=== PATIENT | female | born 1995 | race Caucasian/White ===

== ENCOUNTER → 2017-10-31 | Outpatient (REF) | payer OTHER ==
[2017-10-31 19:56] LABS: BASO % 0.1 % (0.0-1.0); EOS # 0.1 10^3/uL (0.0-0.50); EOS % 0.9 % (0.0-3.0); HEMATOCRIT 35.7 % (36.0-47.0); HEMOGLOBIN 11.3 g/dl (12.0-15.5); IMMATURE GRANULOCYTE % 0.3 % (0-3.0); LYMPH % 28.3 % (24.0-44.0); MEAN CORPUSCULAR HEMOGLOBIN 26.2 pg (27.0-33.0); MEAN CORPUSCULAR HGB CONC 31.7 g/dl (32.0-36.5); MEAN CORPUSCULAR VOLUME 82.8 fl (80.0-96.0); MONO # 0.3 10^3/uL (0.0-0.8); MONO % 4.8 % (0.0-5.0); NEUTROPHILS # 4.5 10^3/uL (1.8-7.7); NEUTROPHILS % 65.6 % (36.0-66.0); PLATELET COUNT, AUTOMATED 252 10^3/uL (150-450); RED BLOOD COUNT 4.31 10^6/uL (4.00-5.40); RED CELL DISTRIBUTION WIDTH 18.6 % (11.5-14.5); WHITE BLOOD COUNT 6.9 10^3/uL (4.0-10.0)
[2017-10-31 22:49] LABS: CHLAMYDIA DNA AMPLIFICATION NEGATIVE (NEGATIVE); GC DNA AMPLIFICATION NEGATIVE (NEGATIVE)
[2017-11-03 10:55] LABS: RUBELLA IgG QUALITATIVE IMMUNE (IMMUNE)
[2017-11-03 11:02] LABS: HBsAg Prenatal NEGATIVE (NEGATIVE)
[2017-11-03 11:25] LABS: HEPATITIS C VIRUS ABY INDEX 0.1 INDEX (<0.8)
[2017-11-03 11:27] LABS: HIV 1&2 SCREEN CENTAUR NEGATIVE (NEGATIVE)
== END ==
LOC: M LAB REF 18:47
DX: Z34.81 Encounter for supervision of other normal pregnancy, first trimester (principal); Z36.89 Encounter for other specified antenatal screening; Z3A.08 8 weeks gestation of pregnancy
CPT/HCPCS: 86762

== ENCOUNTER → 2018-01-13 | Outpatient (CLI) | payer OTHER | LOC: M SMT 14:32 | DX: Z36.89 Encounter for other specified antenatal screening (principal); Z3A.19 19 weeks gestation of pregnancy | CPT/HCPCS: 76811 ==

== ENCOUNTER → 2018-02-12 | Outpatient (CLI) | payer OTHER | LOC: M SMT 08:12 | DX: Z36.89 Encounter for other specified antenatal screening (principal); Z3A.23 23 weeks gestation of pregnancy | CPT/HCPCS: 76816 ==

== ENCOUNTER → 2018-03-05 | Outpatient (CLI) | payer OTHER ==
[2018-03-05 17:25] LABS: BASO % 0.2 % (0.0-1.0); EOS % 0.5 % (0.0-3.0); HEMOGLOBIN 12.5 g/dl (12.0-15.5); LYMPH # 1.6 10^3/uL (1.5-6.5); LYMPH % 17.9 % (24.0-44.0); MEAN CORPUSCULAR HEMOGLOBIN 30.8 pg (27.0-33.0); MEAN CORPUSCULAR HGB CONC 33.8 g/dl (32.0-36.5); MEAN CORPUSCULAR VOLUME 91.1 fl (80.0-96.0); MONO # 0.4 10^3/uL (0.0-0.8); NEUTROPHILS # 6.7 10^3/uL (1.8-7.7); NEUTROPHILS % 75.8 % (36.0-66.0); PLATELET COUNT, AUTOMATED 239 10^3/uL (150-450); RED BLOOD COUNT 4.06 10^6/uL (4.00-5.40); WHITE BLOOD COUNT 8.8 10^3/uL (4.0-10.0)
== END ==
LOC: M SMT 14:22
PROVIDERS: ATTEND Advanced Practice Midwife
DX: Z34.82 Encounter for supervision of other normal pregnancy, second trimester (principal)

== ENCOUNTER → 2018-05-08 | Outpatient (REF) | payer OTHER, MEDICAID | LOC: M LAB REF 17:07 | PROVIDERS: ATTEND Advanced Practice Midwife | DX: Z34.83 Encounter for supervision of other normal pregnancy, third trimester (principal); Z3A.00 Weeks of gestation of pregnancy not specified ==

== ENCOUNTER → 2018-05-20 | Outpatient (CLI) | payer OTHER, MEDICAID ==
[2018-05-20 19:06] LABS: HEMOGLOBIN 12.1 g/dl (12.0-15.5); MEAN CORPUSCULAR HEMOGLOBIN 29.4 pg (27.0-33.0); MEAN CORPUSCULAR HGB CONC 32.7 g/dl (32.0-36.5); PLATELET COUNT, AUTOMATED 262 10^3/uL (150-450); RED BLOOD COUNT 4.11 10^6/uL (4.00-5.40); TOTAL PROTEIN,RANDOM URINE 12.5 MG/DL (0.0-12.0); WHITE BLOOD COUNT 9.9 10^3/uL (4.0-10.0)
[2018-05-20 19:14] LABS: ALT/SGPT 15 U/L (12-78); BILIRUBIN,TOTAL 0.2 MG/DL (0.2-1.0); CREATININE FOR GFR 0.64 MG/DL (0.55-1.30); GLOMERULAR FILTRATION RATE > 60.0 (>60); LDH LACTATE DEHYDROGENASE 165 U/L (84-246); URIC ACID 3.9 MG/DL (2.6-6.0)
== END ==
LOC: M SMT 15:13
PROVIDERS: ATTEND Advanced Practice Midwife
DX: O99.89 Other specified diseases and conditions complicating pregnancy, childbirth and the puerperium (principal); R03.0 Elevated blood-pressure reading, without diagnosis of hypertension

== ENCOUNTER → 2018-05-27 | Outpatient (CLI) | payer OTHER, MEDICAID ==
--- NOTE | 2018-05-27 18:05 | REP ---
Clinical: Growth evaluation. Comparison: 02/12/2018 . Findings: Examination demonstrates a single live intrauterine in cephalic presentation. motion is identified by technologist. Placenta is noted anterior and grade II without evidence for placenta previa or abruption. Amniotic fluid volume is normal. Cervix appears closed. Nuchal cord cannot be excluded. Gestational age by first US 38 weeks 2 days with PABLO 06/08/2018 . Gestational age by current measurements 36 weeks 3 day with PABLO 06/21/2018 . FHR equals 136 beats per minute. BPD 9.3 cm 837 weeks 5 days HC 32.6 cm 36 weeks 6 days AC 32.0 cm 35 weeks 6 days FL 7.2 cm 36 weeks 4 days HC/AC ratio 1.02 Estimated weight 2924 grams ( 29th percentile based on age by first ultrasound ). Amniotic fluid index: 8.4 cm (7.3 - 23.5) Umbilical cord SD ratio: 2.63 (1.60 - 2.60) Impression: 1. Single live intrauterine in cephalic presentation demonstrating relatively appropriate interval growth. 2. Nuchal cord cannot be excluded. Electronically Signed by Kana Dumont MD 05/27/2018 05:57 P
== END ==
LOC: M SMT 12:56
PROVIDERS: ATTEND Advanced Practice Midwife
DX: O26.843 Uterine size-date discrepancy, third trimester (principal); Z3A.36 36 weeks gestation of pregnancy

== ENCOUNTER 2018-06-13 12:50 | Inpatient (IN) | payer OTHER, MEDICAID ==
[2018-06-13] VITALS (23 sets, daily range): BP systolic 101–130; BP diastolic 51–92
[~2018-06-13] VITALS: Ht 165.1 cm; Wt 77.8 kg
[2018-06-13] MEDS ORDERED: PRENTAB9 PO (12:58)
[2018-06-13 14:26] LABS: HEMATOCRIT 34.3 % (36.0-47.0); HEMOGLOBIN 11.3 g/dl (12.0-15.5); MEAN CORPUSCULAR HEMOGLOBIN 28.8 pg (27.0-33.0); MEAN CORPUSCULAR HGB CONC 32.9 g/dl (32.0-36.5); MEAN CORPUSCULAR VOLUME 87.5 fl (80.0-96.0); PLATELET COUNT, AUTOMATED 225 10^3/uL (150-450); RED BLOOD COUNT 3.92 10^6/uL (4.00-5.40); WHITE BLOOD COUNT 13.9 10^3/uL (4.0-10.0)
[2018-06-13] MEDS ORDERED: FENTANYL 2MCG/ML ROPIVACAINE 0.2% IN 0.9% NACL 100ML IVBAG As Ordered ONE (16:38)
[2018-06-13] MEDS ORDERED: EPIDURAL COMMENT XX SCH (19:00)
[2018-06-13] MEDS ORDERED: FENTANYL/ROPIVACAINE/NACL BAG 100 ML EPIDURAL SCH (19:00)
[2018-06-13] MEDS ORDERED: LACTATED RINGER'S 1000 ML IV PRN (19:00)
[2018-06-13] MEDS ORDERED: EPIDURAL/PCA KEYS XX PRN (19:00)
[2018-06-13] MEDS ORDERED: REFRIGERATOR IV KEYS XX PRN (19:00)
[2018-06-13] MEDS ORDERED: ONDANSETRON 4MG/2ML VIAL (J2405) IV PRN (19:00)
[2018-06-13] MEDS ORDERED: NALOXONE INJ 0.4 MG/1 ML VIAL (J2310) IV PRN (19:00)
[2018-06-13] MEDS ORDERED: ePHEDrine SULFATE 25 MG/5 ML(5MG/ML) SYRINGE IV PRN (19:00)
[2018-06-13] MEDS ORDERED: diphenhydrAMINE INJ 50MG/ML VIAL (J1200) IV PRN (19:00)
[2018-06-13] MEDS ORDERED: OXYTOCIN 30 UNITS IN 0.9% NaCl 500ML IV BAG (J2590) As Ordered ONE (20:57)
[2018-06-13] MEDS ORDERED: OXYTOCIN DRIP 30 UNITS in APPROPRIATE DILUENT 1 EA IV SCH (22:30)
[2018-06-14] VITALS (14 sets, daily range): BP systolic 117–131; BP diastolic 56–74
[2018-06-14 02:22] LABS: CORD GAS ABE A -9.8; CORD GAS HCO3 A 19.7 MEQ/L; CORD GAS O2 SAT A 24.7 %; CORD GAS PCO2 A 58.4 mmHg; CORD GAS PH A 7.145 UNITS; CORD GAS SBC A 15.3 MEQ/L; CORD GAS TCO2 A 21.5 MEQ/L
[2018-06-14 02:24] LABS: CORD GAS ABE V -7.4; CORD GAS HCO3 V 18.9 MEQ/L; CORD GAS PH V 7.281 UNITS; CORD GAS PO2 V 28.3 mmHg; CORD GAS SBC V 17.7 MEQ/L; CORD GAS TCO2 V 20.1 MEQ/L
[2018-06-14] MEDS ORDERED: OXYTOCIN DRIP 30 UNITS in APPROPRIATE DILUENT 1 EA IV SCH (02:27)
[2018-06-14] MEDS ORDERED: IBUPROFEN 800 MG TAB PO PRN (02:30)
[2018-06-14] MEDS ORDERED: ACETAMINOPHEN 500 MG TAB PO PRN (02:30)
[2018-06-14] MEDS ORDERED: DOCUSATE SODIUM 100 MG CAP PO PRN (02:30)
[2018-06-14] MEDS ORDERED: MOM 30ML SUSPENSION UDC PO PRN (02:30)
[2018-06-14] MEDS ORDERED: METHYLERGONOVINE MALEATE 0.2 MG TAB PO PRN (02:30)
[2018-06-14] MEDS ORDERED: MEASLES,MUMPS,RUBELLA VACCINE INJ (MMR-II) (90707) SC SCH (02:30)
[2018-06-14] MEDS ORDERED: DIBUCAINE 1% OINTMENT 30GM TOP PRN (02:30)
[2018-06-14] MEDS ORDERED: ANUSOL HC CREAM 30GM TOP PRN (02:30)
[2018-06-14] MEDS ORDERED: RHOGAM 300 MCG (1500 IU) INJ (J2790) IM SCH (02:30)
[2018-06-14] MEDS ORDERED: OXYTOCIN 30 UNITS IN 0.9% NaCl 500ML IV BAG (J2590) As Ordered ONE (02:38)
--- NOTE | 2018-06-14 08:05 | HPE ---
DATE OF ADMISSION: 06/13/2018 REASON FOR ADMISSION: Labor. HISTORY OF PRESENT ILLNESS: Miss Bains is a 22-year-old 1 who presents at 40 weeks 6 days estimated gestational age by last menstrual period confirmed by a first trimester ultrasound who presents with complaints of contractions. Her course has been unremarkable. She initiated care in her first trimester and has been appropriate throughout. PAST MEDICAL HISTORY: None. PAST SURGICAL HISTORY: None. PAST OBSTETRICAL HISTORY: She is 1. MEDICATIONS: Includes vitamins and Zofran. ALLERGIES: No known drug allergies. SOCIAL HISTORY: She denies any alcohol, tobacco or drug use during her . PHYSICAL EXAMINATION: Her vital signs are stable. She is afebrile. General appearance is well appearing, no acute distress. She has category 1 rate tracing with contractions on tocometer. Her lungs are clear to auscultation bilaterally. Cardiovascular: Heart regular rate and rhythm. Abdomen is gravid, nontender. Estimated weight 3500 grams. Cervical exam: She was 4 cm dilated, 75% effaced, -2 station. LABS: Her blood type was O+. Antibody screen is negative. Rubella is immune. RPR is nonreactive. Hepatitis surface antigen is negative. HIV is negative. Hepatitis surface antigen negative. Hepatitis C is nonreactive. Chlamydia and gonorrhea screens were negative. She had a normal 1 hour Glucola. She is Group B Streptococcus (GBS) negative. ASSESSMENT: 1. This patient is a 22-year-old 1 at 40 weeks 6 days estimated gestational age in active labor. 2. Reassuring status. PLAN: 1. Admit to labor and delivery. CBC, RPR, type and screen. 2. Patient is a good candidate for epidural.
[2018-06-14] MEDS: PRENATAL VITAMINS CHEWABLE TABLET PO SCH (09:11)
--- NOTE | 2018-06-14 10:45 | DN ---
DATE OF DELIVERY: 06/14/2018 TIME OF : 0152 hours. GENDER: Female. SCORES: 8 and 8. WEIGHT: 3140 grams or 6 pounds 15 ounces. ANESTHESIA: Epidural. LACERATIONS: None. ESTIMATED BLOOD LOSS: 300 mL. SPECIMENS: Cord blood, cord gases. Cord gases were 7.14, 7.28 with base excess of -9.8 and -7.4 DELIVERY NOTE: On June 14, 2018 at 0152 hours, Ms. Bains a 22-year-old 1 now para 1 had a spontaneous vaginal delivery of liveborn female , scores of 8 and 8, weight was 3140 grams or 6 pounds 15 ounces. Head was delivered OA over intact perineum. There was a nuchal cord which was manually reduced. This was followed by delivery of shoulders as well as corpus. Infant was handed to mom with a good cry. Cord was clamped times two and was cut by support person. Cord blood and gases were obtained. Placenta was then drained and delivered grossly intact. A premixed bag of 500 mL of normal saline with 30 units of Pitocin was bolused along with uterine massage until the uterus was firm. On inspection, the cervix, vagina and perineum were grossly intact and hemostatic. Mom and baby recovered in stable condition. There were five laparotomy sponges accounted for prior to and after delivery. Mom has decided to name her daughter
[2018-06-15 06:00] VITALS: BP 117/57
[2018-06-15] MEDS ORDERED: IBUP-1114 PO (08:29)
[2018-06-15] MEDS ORDERED: MAPA500T2 PO (08:29)
[2018-06-15] MEDS: PRENATAL VITAMINS CHEWABLE TABLET PO SCH (09:07)
== END 2018-06-15 10:50 | disposition home or self-care (01) | DRG 807 ==
LOC: M LDO 12:50 → M LDI 13:30 → M OBS 06-14 04:37
PROVIDERS: ADMIT Obstetrics & Gynecology; ATTEND Obstetrics & Gynecology
PROC: 10E0XZZ Delivery of Products of Conception, External Approach (ICD-10-PCS; principal; 2018-06-14)
DX: O48.0 Post-term pregnancy (principal); Z37.0 Single live birth; Z3A.40 40 weeks gestation of pregnancy

== ENCOUNTER → 2018-12-02 | Outpatient (CLI) | payer OTHER ==
[~2018-12-02] MED LIST: IBUP-1114 PO; MAPA500T2 PO; PRENTAB9 PO
--- NOTE | 2018-12-03 03:32 | REP ---
Clinical: Anatomical evaluation. Comparison: None . Findings: Examination demonstrates a single live intrauterine in variable presentation. motion is identified by technologist. Placenta is noted anterior and grade zero without evidence for placenta previa or abruption. Amniotic fluid volume is normal. Cervix measures 4.1 cm in length and appears closed. No evidence for nuchal cord. Gestational age by LMP 15 weeks 2 days with PABLO 05/24/2019 . Gestational age by current measurements 16 weeks 2 days with PABLO 05/17/2019 . FHR equals 157 beats per minute. Estimated weight 154 grams ( 45th percentile based on age by current measurements ). Visualized normal anatomical structures include cranium, choroid plexus, cavum, posterior fossa, facial features, lungs, four-chamber heart, diaphragm, stomach, cord insertion/three-vessel cord, bladder, extremities. Impression: Single live early intrauterine at 16 weeks 2 days gestational age by current biometrical measurements. Electronically Signed by Kana Dumont MD 12/03/2018 03:24 A
== END ==
LOC: M RAD 06:28
PROVIDERS: ATTEND Advanced Practice Midwife
DX: Z36.9 Encounter for antenatal screening, unspecified (principal); Z3A.16 16 weeks gestation of pregnancy

== ENCOUNTER → 2018-12-24 | Outpatient (CLI) | payer OTHER ==
[2018-12-24 19:18] LABS: BASO % 0.2 % (0.0-1.0); EOS # 0.1 10^3/uL (0.0-0.5); EOS % 0.6 % (0.0-3.0); HEMATOCRIT 36.7 % (36.0-47.0); HEMOGLOBIN 11.6 g/dl (12.0-15.5); LYMPH # 1.9 10^3/uL (1.5-5.0); LYMPH % 23.1 % (24.0-44.0); MEAN CORPUSCULAR HEMOGLOBIN 27.2 pg (27.0-33.0); MEAN CORPUSCULAR HGB CONC 31.6 g/dl (32.0-36.5); MEAN CORPUSCULAR VOLUME 85.9 fl (80.0-96.0); MONO # 0.5 10^3/uL (0.0-0.8); MONO % 5.7 % (0.0-5.0); NEUTROPHILS # 5.8 10^3/uL (1.5-8.5); PLATELET COUNT, AUTOMATED 291 10^3/uL (150-450); RED BLOOD COUNT 4.27 10^6/uL (4.00-5.40); WHITE BLOOD COUNT 8.4 10^3/uL (4.0-10.0)
[2018-12-24 19:30] LABS: FREE THYROXINE INDEX 3.3 % (1.3-4.8); T UPTAKE 23 % (30-39); THYROXINE (T4) 14.2 UG/DL (4.5-12.0)
[2018-12-24 22:04] LABS: CHLAMYDIA DNA AMPLIFICATION NEGATIVE (NEGATIVE); GC DNA AMPLIFICATION NEGATIVE (NEGATIVE)
[2018-12-25 08:43] LABS: RUBELLA IgG QUALITATIVE IMMUNE (IMMUNE)
[2018-12-25 09:10] LABS: HEPATITIS C VIRUS ABY INDEX 0.1 INDEX (<0.8)
[2018-12-25 09:11] LABS: HIV 1&2 SCREEN CENTAUR NEGATIVE (NEGATIVE)
== END ==
LOC: M LABDRWAD 15:42
PROVIDERS: ATTEND Advanced Practice Midwife
DX: Z36.89 Encounter for other specified antenatal screening (principal)

== ENCOUNTER → 2019-01-25 | Outpatient (CLI) | payer OTHER, MEDICAID ==
--- NOTE | 2019-01-25 09:01 | REP ---
Obstetric sonography: History: Supervision of for anatomy. Findings: Scanning through the gravid uterus demonstrates a viable single intrauterine gestation in a cephalic lie. motion is observed and heart rate is recorded at 147 beats per minute. An anterior grade zero placenta is seen without evidence of previa or abruption. Amniotic fluid is subjectively normal. Closed cervical length measures 4.3 cm. No extrauterine abnormality is observed. There has been appropriate interval growth. No anomaly is seen. face and profile and left and right ventricular outflow tract views are less than optimally seen today due to position. The following additional anatomic structures are identified and felt to be sonographically unremarkable: cranium, choroid plexus, cavum, cerebellum and posterior fossa, lungs, four-chamber heart, diaphragm, left-sided stomach, abdominal wall cord insertion, three-vessel umbilical cord, kidneys and bladder, spine, upper and lower extremities. Biometry chart: BPD 6.0 cm 24 weeks 2 days Head circumference 21.7 cm 23 weeks 5 days Abdominal circumference 18.3 cm 23 weeks 1 day Femur length 4.1 cm 23 weeks 2 days Humeral length 3.8 cm 23 weeks 4 days HC/AC ratio normal 1.19. Cephalic index normal 0.77. Estimated weight 582 grams, 1 pound 4 ounces, 23rd percentile for 24 weeks 0 days. Impression: Viable single intrauterine gestation at 24 weeks 0 days by today's composite sonographic criteria. Expected gestational age estimate based on prior sonography is 23 weeks 4 days. PABLO by prior sonography May 20, 2019. cardiac outflow tract view still less than optimally seen due to position. Electronically Signed by Kedar Maria MD 01/25/2019 09:16 A
== END ==
LOC: M RAD 06:16
PROVIDERS: ATTEND Advanced Practice Midwife
DX: Z34.82 Encounter for supervision of other normal pregnancy, second trimester (principal); Z3A.24 24 weeks gestation of pregnancy

== ENCOUNTER → 2019-03-25 | Outpatient (REF) | payer OTHER, MEDICAID ==
[2019-03-25 19:58] LABS: HEMOGLOBIN 10.4 g/dl (12.0-15.5); MEAN CORPUSCULAR HEMOGLOBIN 25.6 pg (27.0-33.0); MEAN CORPUSCULAR HGB CONC 30.6 g/dl (32.0-36.5); MEAN CORPUSCULAR VOLUME 83.7 fl (80.0-96.0); PLATELET COUNT, AUTOMATED 235 10^3/uL (150-450); RED BLOOD COUNT 4.06 10^6/uL (4.00-5.40); WHITE BLOOD COUNT 7.1 10^3/uL (4.0-10.0)
== END ==
LOC: M LAB REF 13:25
PROVIDERS: ATTEND Advanced Practice Midwife
DX: Z34.82 Encounter for supervision of other normal pregnancy, second trimester (principal)

== ENCOUNTER → 2019-03-29 | Outpatient (CLI) | payer OTHER, MEDICAID ==
--- NOTE | 2019-03-30 03:00 | REP ---
Clinical: Anatomical evaluation. Comparison: 01/25/2019 . Findings: Examination demonstrates a single live intrauterine in cephalic presentation. motion is identified by technologist. Placenta is noted anterior and grade zero without evidence for placenta previa or abruption. Amniotic fluid volume is normal. Cervix measures 3.4 cm in length and appears closed. Nuchal cord cannot be excluded. Gestational age by LMP 32 weeks 0 days with PABLO 05/24/2019 . Gestational age by current measurements 32 weeks 6 days with PABLO 05/18/2019 . FHR equals 136 beats per minute. Estimated weight 1942 grams ( 49th percentile). Amniotic fluid index: 10.2 cm (8.3 - 24.5) Umbilical cord SD ratio: 2.10 Anatomical assessment demonstrates normal structures including cranium, cavum, cerebellum/posterior fossa, nose/lips, lungs, four-chamber heart/ventricular outflow tracts, diaphragm, stomach, three-vessel cord, kidneys/bladder, and spine. Impression: 1. single live intrauterine in cephalic presentation demonstrating appropriate interval growth. 2. Nuchal cord cannot be excluded. 3. In conjunction with prior examination anatomical assessment is complete and normal. Electronically Signed by Kana Dumont MD 03/30/2019 02:52 A
== END ==
LOC: M RAD 07:21
PROVIDERS: ATTEND Advanced Practice Midwife
DX: Z34.83 Encounter for supervision of other normal pregnancy, third trimester (principal); Z3A.27 27 weeks gestation of pregnancy

== ENCOUNTER → 2019-04-29 | Outpatient (REF) | payer OTHER, MEDICAID | LOC: M SFHCWAGY 12:52 | PROVIDERS: ATTEND Advanced Practice Midwife | DX: Z34.83 Encounter for supervision of other normal pregnancy, third trimester (principal) ==

== ENCOUNTER → 2019-05-04 | Outpatient (CLI) | payer OTHER, MEDICAID ==
--- NOTE | 2019-05-04 12:00 | REP ---
Obstetric sonography: History: 36 weeks growth study. Findings: Scanning demonstrates a viable single intrauterine gestation in a cephalic lie. motion is observed and heart rate is recorded at 141 beats per minute. An anterior grade 1 placenta is seen without evidence of previa. Amniotic fluid is subjectively normal. Closed cervical length measures 3.0 cm viewed transabdominally. No extrauterine abnormalities observed. There is somewhat less than expected interval growth. The following anatomic structures are again identified and felt to be unremarkable: cranium, choroid plexus, cavum, face and profile, lungs, four-chamber heart, diaphragm, left-sided stomach, three-vessel cord, kidneys and bladder, spine. Biometry chart: BPD 9.3 cm = 37 weeks 5 days Head circumference 33.0 cm = 37 weeks 4 days Abdominal circumference 29.5 cm = 33 weeks 3 days Femur length 6.8 cm = 34 weeks 5 days Humeral length 5.9 cm = 34 weeks 0 days HC/AC ratio 1.12. Cephalic index normal 0.80. Estimated weight 2475 grams, 5 pounds 7 ounces, 15th percentile for 37 weeks 1 day. SKYLER normal 17.1 cm. S/D ratio normal 2.26. Impression: Viable single intrauterine gestation at 35 weeks 3 days by today's composite sonographic criteria. Expected gestational age estimate based on prior sonography 38 weeks 1 day. PABLO by prior sonography May 17, 2019. Estimated weight in the 15th percentile. Somewhat less than expected interval growth. Electronically Signed by Kedar Maria MD 05/04/2019 03:44 P
== END ==
LOC: M RAD 08:30
PROVIDERS: ATTEND Advanced Practice Midwife
DX: O26.849 Uterine size-date discrepancy, unspecified trimester (principal); Z3A.37 37 weeks gestation of pregnancy

== ENCOUNTER → 2019-05-06 | Outpatient (REF) | payer OTHER, MEDICAID | LOC: M LABDRWAD 19:18 | PROVIDERS: ATTEND Advanced Practice Midwife | DX: Z34.83 Encounter for supervision of other normal pregnancy, third trimester (principal) ==

== ENCOUNTER 2019-05-07 23:37 | Inpatient (IN) | payer OTHER, MEDICAID ==
[~2019-05-07] VITALS: Ht 165.1 cm; Wt 78.3 kg
[2019-05-07 23:50] VITALS: BP 141/71
[2019-05-08] VITALS (39 sets, daily range): BP systolic 98–140; BP diastolic 54–79
[2019-05-08] MEDS ORDERED: LACTATED RINGER'S 1000 ML IV STA (00:25)
[2019-05-08] MEDS ORDERED: LR 1,000 ML IV SCH (00:25)
[2019-05-08] MEDS ORDERED: BUTORPHANOL 2 MG/ML INJ (J0595) IV ONE (00:30)
[2019-05-08] MEDS ORDERED: OXYTOCIN DRIP 30 UNITS in IV 1 EA IV SCH ×3 (00:30→13:00)
[2019-05-08] MEDS ORDERED: PROMETHAZINE INJ 25 MG/ML VIAL (J2550) IV ONE (00:30)
--- NOTE | 2019-05-08 01:02 | HPEPDOC ---
Obstetrical History & Physical General Date of Admission 05/08/2019 Primary Care Physician: Heike Cordero CNM History of Present Illness Chief Complaint: LOF, term Information Provided By: Patient Age: 23 : 2 Term: 1 Pre-term: 0 Abortions: 0 Livin Care Care: Good Care Dating Final EDC: May 24, 2019 Final EDC by: LMP LMP: Aug 17, 2018 EGA at Admission: 37.5 Antepartum Course Diagnos(e)s SIUP at 37.5wk, SROM Height (inches): 65 Pre- weight (lbs.): 152 Admission Weight (lbs.): 172 Change in Weight (lbs.): 20 Past Medical History Past Obstetrical History : Past Obstetrical History: Primgravida Gestation: 41 Type of Delivery: Spontaneous Vaginal Del. Sex of : Male Weight of Infant (grams): 3147 Complications: No Past Medical History Medical History Iron-deficiency anemia, headaches (migraines), allergic rhinitis, constipation related to Fe supplement. Surgical History: Other (mole removal, oral surery) Family History Significant Family History: Heart disease, Other (hypothyroid) Social History Marital Status: Single (lives with boyfriend and parents) Psychosocial History: Anxiety * Smoker: non-smoker Alcohol: Denies Drugs: denies Abuse Violence Screening Have you been hit/kicked/slapp: No Have you been sexually assault: No Imunizations Tdap status: current Allergies Coded Allergies: No Known Drug Allergies (Verified Allergy, Unknown, 06/13/18) Medications Scheduled No.137/Iron/Folic Acd ( Vitamin Tablet) 1 Tab Tab, 1 TAB PO DAILY Scheduled PRN Acetaminophen (Mapap) 500 Mg Tab, 1,000 MG PO Q6HP PRN for MILD PAIN (PS 1-4) Ibuprofen (Ibuprofen) 400 Mg Tab, 800 MG PO Q8HP PRN for MODERATE PAIN (PS 5-7) Physical Examination Physical Examination GENERAL: Alert and oriented times three. BREAST: . ABDOMEN: Gravid and non-tender to touch. FETUS: Is vertex (VTX) by sterile vaginal examination (SVE), fetus is vertex (VTX) by Flash. HEART RATE: Regular rate and rhythm. LUNGS: Clear to auscultation (CTA). EXTREMITIES: No edema. No clonus. Deep tendon reflexes (DTRs) + 2. Vital Signs/I&O Vital Signs Date Time Temp Pulse Resp B/P (MAP) Pulse Ox O2 Delivery O2 Flow Rate FiO2 05/07/19 23:50 97.0 80 18 141/71 (94) Pertinent Laboratoy Data Blood Type: O+ RBC Antibody Screen: Negative HIV: Negative Hepatitis B: Negative Hepatitis C: Negative Rapid Plasma Reagin: Nonreactive Rubella: Immune Chlamydia/Gonorrhea: Negative Group B Streptococcus: Negative Glucose Tolerance Test: 89 Anatomy Ultrasound Ultrasound Date: Jan 25, 2019 Placenta Location: Anterior Normal Anatomy: Yes Estimated Weight (grams): 582 (23%) Other Ultrasounds 11/12/2018-SIUP advanced gestation, +FM 12/02/2018-SIUP 16wk 2d, [id number] (45%), placenta anterior, no abruption or previa. SKYLER normal. 01/25/20191925-[id number], cephalic, [id number], anterior placenta. Normal fluid. EFW 582g (23%). VOTs less than optimally seen. 03/29/2018-anatomy [id number], EFW 1942g (49%), normal fluid. Normal remainder of anatomy. 05/04/2019-size less than [id number] (15%). Normal fluid. S/D ratio 2.26. Somewhat less than expected growth. Vaginal Examination Dilation: 3 cm Effacement: 50% Station: -2 Cervical Consistency: Medium Cervical Position: Posterior Presentation: Cephalic presentation Position: Vertex (occiput) Assessment Heart Rate (FHR): 140 Variability: Moderate Accelerations: Positive Decelerations: None Tocometer Contractions: Yes Frequency: irregular, greater than 9 min/apart Duration: less than 60 seconds Strength: palpated as mild Assessment/Plan Assessment Merline Arrieta is a 23-year-old (G)2 para (P)1-0-0-1 at 37+5 weeks by LMP and consistent with 16-week ultrasound. PABLO 05/24/2019. Care was established in first trimester. has been complicated by iron-deficiency anemia and constipation. Presents to Labor and Delivery (L&D) for SROM of moderate amount of clear fluids at 2215. Clear fluid noted to be leaking from vagina, positive valsalva maneuver. She reports positive movement, denies vaginal bleeding. Patient denies painful uterine contractions. FHR category 1, moderate variability, accelerations present, decelerations absent. Plan Admit to L&D. Diet: clears. Group B Streptococcus (GBS) negative. Labs and intravenous (IV) per unit protocol. Counseled on Pitocin and induction of labor (IOL). Lactated Ringers (LR): Bolus 500 mL, then at 125 mL/hr. Anesthesia consult per patient request. Anticipate cervical ripening and change. Anticipate normal spontaneous delivery (). C-S as appropriate. Heike Cordero CNM May 08, 2019 01:02
[2019-05-08 01:16] LABS: HEMATOCRIT 32.2 % (36.0-47.0); HEMOGLOBIN 10.1 g/dl (12.0-15.5); MEAN CORPUSCULAR HEMOGLOBIN 24.9 pg (27.0-33.0); MEAN CORPUSCULAR HGB CONC 31.4 g/dl (32.0-36.5); MEAN CORPUSCULAR VOLUME 79.3 fl (80.0-96.0); PLATELET COUNT, AUTOMATED 242 10^3/uL (150-450); RED BLOOD COUNT 4.06 10^6/uL (4.00-5.40); WHITE BLOOD COUNT 7.5 10^3/uL (4.0-10.0)
[2019-05-08] MEDS ORDERED: FENTANYL 2MCG/ML ROPIVACAINE 0.2% IN 0.9% NACL 100ML IVBAG As Ordered ONE ×2 (04:54→04:55)
[2019-05-08] MEDS ORDERED: diphenhydrAMINE INJ 50MG/ML VIAL (J1200) IV PRN (05:35)
[2019-05-08] MEDS ORDERED: EPIDURAL COMMENT XX SCH (05:35)
[2019-05-08] MEDS ORDERED: NALOXONE INJ 0.4 MG/1 ML VIAL (J2310) IV PRN (05:35)
[2019-05-08] MEDS ORDERED: EPIDURAL/PCA KEYS XX PRN (05:35)
[2019-05-08] MEDS ORDERED: FENTANYL/ROPIVACAINE/NACL BAG 100 ML EPIDURAL SCH (05:35)
[2019-05-08] MEDS ORDERED: ONDANSETRON 4MG/2ML VIAL (J2405) IV PRN (05:35)
[2019-05-08] MEDS ORDERED: REFRIGERATOR IV KEYS XX PRN (05:35)
[2019-05-08] MEDS ORDERED: ePHEDrine SULFATE 25 MG/5 ML(5MG/ML) SYRINGE IV PRN (05:35)
[2019-05-08] MEDS ORDERED: LACTATED RINGER'S 1000 ML IV PRN (05:35)
--- NOTE | 2019-05-08 05:57 | IPNPDOC ---
Text Note Date of Service The patient was seen on 05/08/19. NOTE Progress Subjective: Patient is resting comfortably after epidural placement. She reports pain is well-controlled. Patient reports positive movement, leakage of clear fluid. Objective: SVE 5/70/-2, vertex, normal blood show noted. Leakage of clear fluid noted. FHR 140 with moderate variability, accelerations present, decelerations absent. Category 1 heart rate tracing. Contractions every 1-4 minutes. Assessment: SIUP at 37.wk gestation, SROM Plan: Resume IV Pitocin per protocol. Bae catheter placement. Clear liquid diet. Patient to remain in bed. Anticipate cervical change. Anticipate vaginal delivery. C/S as appropriate. VS,Fishbone, I+O VS, Fishbone, I+O Laboratory Tests 05/08/19 01:04 Vital Signs Date Time Temp Pulse Resp B/P (MAP) Pulse Ox O2 Delivery O2 Flow Rate FiO2 05/07/19 23:50 97.0 80 18 141/71 (94) Heike Cordero CNM May 08, 2019 05:57
[2019-05-08 11:30] LABS: CORD GAS HCO3 V 24.4 MEQ/L; CORD GAS O2 SAT V 48.2 %; CORD GAS PCO2 V 47.8 mmHg; CORD GAS PH V 7.326 UNITS; CORD GAS PO2 V 22.1 mmHg; CORD GAS SBC V 21.7 MEQ/L; CORD GAS TCO2 V 25.9 MEQ/L
[2019-05-08] MEDS ORDERED: IBUPROFEN 600 MG TAB PO PRN (11:30)
[2019-05-08] MEDS ORDERED: ACETAMINOPHEN TAB 650MG DOSE (2X325MG) PO PRN (11:30)
[2019-05-08] MEDS ORDERED: DOCUSATE SODIUM 100 MG CAP PO PRN (11:30)
[2019-05-08] MEDS ORDERED: ANUSOL HC CREAM 30GM TOP PRN (11:30)
[2019-05-08] MEDS ORDERED: MOM 30ML SUSPENSION UDC PO PRN (11:30)
[2019-05-08] MEDS ORDERED: METHYLERGONOVINE MALEATE 0.2 MG TAB PO PRN (11:30)
[2019-05-08] MEDS ORDERED: DIBUCAINE 1% OINTMENT 30GM TOP PRN (11:30)
[2019-05-08] MEDS ORDERED: ACETAMINOPHEN 500 MG TAB PO PRN (11:30)
[2019-05-08] MEDS ORDERED: IBUPROFEN 800 MG TAB PO PRN (11:30)
[2019-05-08 11:33] LABS: CORD GAS HCO3 A 25.1 MEQ/L; CORD GAS O2 SAT A 31.9 %; CORD GAS PCO2 A 64.7 mmHg; CORD GAS PH A 7.207 UNITS; CORD GAS PO2 A 18.3 mmHg; CORD GAS SBC A 19.8 MEQ/L; CORD GAS TCO2 A 27.1 MEQ/L
[2019-05-08] MEDS ORDERED: RHOGAM 300 MCG (1500 IU) INJ (J2790) IM SCH (12:00)
[2019-05-08] MEDS ORDERED: MEASLES,MUMPS,RUBELLA VACCINE INJ (MMR-II) (90707) SC SCH (12:00)
--- NOTE | 2019-05-08 12:21 | DNPDOC ---
[facility] Delivery Note Delivery Note DATE OF DELIVERY: 05/08/2019 TIME OF : 1106 GENDER:, Male. APGARS: 8 and 9. WEIGHT:, 2700 grams or 5 pounds 15 ounces. LACERATIONS: None ANESTHESIA: Epidural. COUNTS: 5 laparotomy sponges accounted for prior to and after delivery. 2 sharps removed from the delivery field. DELIVERY NOTE: 05/08/2019, had a spontaneous vaginal delivery of viable male , Apgars, Apgars 8 and 9. Weight was 2700 g or 5 lbs. 15 oz. Head was delivered [occiput anterior (OA). Nuchal cord x3 was manually reduced followed by delivery of the shoulders and corpus. Infant was handed to mom with a good cry. Cord was clamped times two and was cut by the father of baby under my direction. Placenta was then drained and delivered grossly intact. A premixed bag of 500 mL of normal saline with 30 units of Pitocin was then bolused along with uterine massage until the uterus was firm. On inspection,. On inspection, cervix, vagina, perineum was grossly intact and hemostatic. Mom and baby in recovery on stable condition. The couples decided to remain in son MALLIKA Fierro MD. May 08, 2019 12:21
[2019-05-08] MEDS ORDERED: miSOPROStol 200 MCG TAB (S0191) PR ONE (13:00)
[2019-05-09 05:53] VITALS: BP 106/55
[2019-05-09] MEDS ORDERED: PRENATAL VITAMINS CHEWABLE TABLET PO SCH (09:00)
== END 2019-05-09 18:10 | disposition home or self-care (01) | DRG 807 ==
LOC: M LDO 23:37 → M LDI 05-08 00:39 → M OBS 05-08 14:27
PROVIDERS: ADMIT Advanced Practice Midwife; ATTEND Advanced Practice Midwife
PROC: 10E0XZZ Delivery of Products of Conception, External Approach (ICD-10-PCS; principal; 2019-05-08)
DX: O99.02 Anemia complicating childbirth (principal); Z37.0 Single live birth; Z3A.37 37 weeks gestation of pregnancy; D50.9 Iron deficiency anemia, unspecified; K59.00 Constipation, unspecified; O69.81X0 Labor and delivery complicated by cord around neck, without compression, not applicable or unspecified; O99.62 Diseases of the digestive system complicating childbirth

== ENCOUNTER → 2019-06-04 | Outpatient (REF) | payer OTHER, MEDICAID | LOC: M SFHCADAM 18:15 | PROVIDERS: ATTEND Physician Assistant Medical | DX: R50.9 Fever, unspecified (principal) | CPT/HCPCS: 87486; 87581; 87633; 87798; U0002 ==

== ENCOUNTER → 2019-08-12 | Outpatient (REF) | payer OTHER, MEDICAID ==
[2019-08-12 20:11] LABS: FREE T4 0.97 NG/DL (0.76-1.46); THYROID STIMULATING HORMONE 2.24 uIU/ML (0.358-3.740)
== END ==
LOC: M SFHCADAM 15:29
PROVIDERS: ATTEND Physician Assistant Medical
DX: F34.1 Dysthymic disorder (principal)

== ENCOUNTER → 2019-12-13 | Outpatient (REF) | payer OTHER ==
[~2019-12-13] MED LIST changes: +LO LTAB; +SERT50TA29
== END ==
LOC: M LAB REF 12:34
PROVIDERS: ATTEND Physician Assistant
DX: R10.30 Lower abdominal pain, unspecified (principal)

== ENCOUNTER 2019-12-15 07:49 | Emergency (ER) | payer OTHER ==
[~2019-12-15] VITALS: Ht 165.1 cm; Wt 72.5 kg
[~2019-12-15 07:49] MED LIST changes: -LO LTAB; -SERT50TA29
[2019-12-15] MEDS ORDERED: SERT50TA29 (07:54)
[2019-12-15] MEDS ORDERED: LO LTAB (07:54)
[2019-12-15] MEDS ORDERED: NS 1,000 ML IV ONE (08:45)
[2019-12-15 08:57] LABS: BASO % 0.4 % (0.0-1.0); EOS # 0.1 10^3/uL (0.0-0.5); EOS % 0.9 % (0.0-3.0); HEMATOCRIT 37.4 % (36.0-47.0); HEMOGLOBIN 11.2 g/dl (12.0-15.5); LYMPH # 2.1 10^3/uL (1.5-5.0); LYMPH % 37.2 % (24.0-44.0); MEAN CORPUSCULAR HEMOGLOBIN 21.7 pg (27.0-33.0); MEAN CORPUSCULAR HGB CONC 29.9 g/dl (32.0-36.5); MEAN CORPUSCULAR VOLUME 72.3 fl (80.0-96.0); MONO # 0.3 10^3/uL (0.0-0.8); MONO % 5.3 % (0.0-5.0); NEUTROPHILS # 3.1 10^3/uL (1.5-8.5); PLATELET COUNT, AUTOMATED 336 10^3/uL (150-450); RED BLOOD COUNT 5.17 10^6/uL (4.00-5.40); WHITE BLOOD COUNT 5.5 10^3/uL (4.0-10.0)
--- NOTE | 2019-12-15 09:10 | REPVR ---
PROCEDURE INFORMATION: Exam: XR Chest, 2 Views Exam date and time: 12/15/2019 8:41 AM Age: 24 years old Clinical indication: Pain; Other: Abdominal; Additional info: Abdominal pain, denied TECHNIQUE: Imaging protocol: XR of the chest Views: 2 views. COMPARISON: CR Chest, 2 view PA, Lat 02/18/2015 2:45 PM FINDINGS: Lungs: No acute infiltrate is seen. Pleural space: No pneumothorax or pleural effusion is seen. Heart/Mediastinum: No cardiomegaly. Bones/joints: The visualized osseous structures are unremarkable. No acute fracture or dislocation is seen. IMPRESSION: No acute infiltrate, pneumothorax or pleural effusion is seen. Electronically signed by: Bin Sherman On 12/15/2019 09:10:23 AM
[2019-12-15 09:14] LABS: ALBUMIN 3.9 GM/DL (3.2-5.2); ALT/SGPT 17 U/L (12-78); BILIRUBIN,DIRECT < 0.1 MG/DL (0.0-0.2); BILIRUBIN,TOTAL 0.3 MG/DL (0.2-1.0); LIPASE 135 U/L (73-393); TOTAL PROTEIN 8.1 GM/DL (6.4-8.2)
[2019-12-15] MEDS: GASTROGRAFIN SOLUTION 30ML PO SCH ×2 (11:34→12:04)
[2019-12-15 11:48] LABS: CK-MB VALUE MASS < 1.0 NG/ML (<3.6); CPK CREATINE PHOSPHOKINASE 91 U/L (26-192); TROPONIN I < 0.02 NG/ML (< 0.10)
[2019-12-15] MEDS ORDERED: ISOVUE-370 76% 100ML VIAL As Ordered ONE (13:09)
--- NOTE | 2019-12-15 13:43 | REPVR ---
PROCEDURE INFORMATION: Exam: CT Abdomen And Pelvis With Contrast Exam date and time: 12/15/2019 1:24 PM Age: 24 years old Clinical indication: Abdominal pain; Additional info: Diarrhea, lower abd pain TECHNIQUE: Imaging protocol: Computed tomography of the abdomen and pelvis with intravenous contrast. Radiation optimization: All CT scans at this facility use at least one of these dose optimization techniques: automated exposure control; mA and/or kV adjustment per patient size (includes targeted exams where dose is matched to clinical indication); or iterative reconstruction. Contrast material: ISOVUE 370; Contrast volume: 100 ml; Contrast route: INTRAVENOUS (IV); Other contrast: Oral; COMPARISON: None FINDINGS: Liver: Normal. No mass. Gallbladder and bile ducts: Normal. No calcified stones. No ductal dilation. Pancreas: Normal. No ductal dilation. Spleen: Normal. No splenomegaly. Adrenals: Normal. No mass. Kidneys and ureters: Normal. No hydronephrosis. Stomach and bowel: There is no evidence for intestinal obstruction. Appendix: A normal appendix is identified. There is no evidence of distention or periappendiceal inflammation to suggest appendicitis. Intraperitoneal space: Unremarkable. No free air. No significant fluid collection. Vasculature: Unremarkable. No abdominal aortic aneurysm. Lymph nodes: Unremarkable. No enlarged lymph nodes. Urinary bladder: Unremarkable as visualized. Reproductive: Unremarkable as visualized. Bones/joints: Unremarkable. No acute fracture. Soft tissues: Unremarkable. Other findings: No evidence of acute abnormality in the abdomen. IMPRESSION: 1. A normal appendix is identified. There is no evidence of distention or periappendiceal inflammation to suggest appendicitis. 2. There is no evidence for intestinal obstruction. 3. No evidence of acute abnormality in the abdomen. Electronically signed by: Bin Sherman On 12/15/2019 13:42:47 PM
[2019-12-15 13:56] VITALS: BP 124/75
--- NOTE | 2019-12-15 20:31 | ECGEPIP ---
[facility] - ED Test Date: 2019-12-15 Pat Name: ROJAS SÁNCHEZ Department: Room: - Gender: Female Rn First Assist: erica : 1995 Requested By: JOHNSON Dubois PA-C Order Number: [id number] Reading MD: Gilmer Martinez Measurements Intervals [place] Rate: 63 P: 18 NM: 131 QRS: -15 QRSD: 104 T: 19 QT: 406 QTc: 416 Interpretive Statements SINUS RHYTHM POSSIBLE INCOMPLETE RIGHT BUNDLE BRANCH BLOCK NSTTW ABNORMALITY(S) Electronically Signed on 12-15-2019 20:31:11 EDT by Gilmer Martinez
== END 2019-12-15 14:14 | disposition home or self-care (01) ==
LOC: M ED 07:49
DX: K52.9 Noninfective gastroenteritis and colitis, unspecified (principal); R10.84 Generalized abdominal pain; R06.02 Shortness of breath
CPT/HCPCS: 71046; 74177; 80047; 80076; 81001; 82550; 82553; 83690; 84484; 84702; 85025; 87086; 87507; 93005; 96360; 96361; 99284; Q9963; Q9967

== ENCOUNTER → 2020-05-19 | Outpatient (REF) | payer OTHER, MEDICAID ==
[~2020-05-19] MED LIST changes: +LO LTAB; +SERT50TA29
[2020-05-19 12:42] LABS: FREE T4 0.79 NG/DL (0.76-1.46); THYROID STIMULATING HORMONE 1.91 uIU/ML (0.358-3.740)
== END ==
LOC: M SFHCADAM 08:18
PROVIDERS: ATTEND Physician Assistant Medical
DX: F34.1 Dysthymic disorder (principal)

== ENCOUNTER → 2020-07-05 | Outpatient (REF) | payer OTHER, MEDICAID | LOC: M SFHCWAGY 17:06 | PROVIDERS: ATTEND Specialist | DX: Z12.4 Encounter for screening for malignant neoplasm of cervix (principal) ==

== ENCOUNTER → 2020-09-08 | Outpatient (REF) | payer OTHER, MEDICAID ==
[2020-09-08 13:11] LABS: BASO % 0.5 % (0.0-1.0); EOS # 0.1 10^3/uL (0.0-0.5); HEMATOCRIT 43.1 % (36.0-47.0); HEMOGLOBIN 13.1 g/dl (12.0-15.5); LYMPH # 1.9 10^3/uL (1.5-5.0); LYMPH % 32.8 % (24.0-44.0); MEAN CORPUSCULAR HEMOGLOBIN 25.1 pg (27.0-33.0); MEAN CORPUSCULAR HGB CONC 30.4 g/dl (32.0-36.5); MEAN CORPUSCULAR VOLUME 82.7 fl (80.0-96.0); MONO # 0.4 10^3/uL (0.0-0.8); MONO % 6.6 % (2.0-8.0); NEUTROPHILS # 3.4 10^3/uL (1.5-8.5); NEUTROPHILS % 58.8 % (36.0-66.0); PLATELET COUNT, AUTOMATED 329 10^3/uL (150-450); RED BLOOD COUNT 5.21 10^6/uL (4.00-5.40); WHITE BLOOD COUNT 5.8 10^3/uL (4.0-10.0)
[2020-09-08 13:35] LABS: PERCENT SATURATION 8.4 % (13.2-45.0)
[2020-09-08 13:41] LABS: TOTAL 25(OH) VITAMIN D 28.6 NG/ML (30.0-100.0)
[2020-09-08 13:42] LABS: FOLATE 11.5 NG/ML
== END ==
LOC: M SFHCADAM 08:05
PROVIDERS: ATTEND Physician Assistant Medical
DX: E61.1 Iron deficiency (principal)

== ENCOUNTER 2020-10-20 19:09 | Emergency (ER) | payer OTHER, MEDICAID ==
[~2020-10-20] VITALS: Ht 152.4 cm; Wt 86.1 kg
[2020-10-20] MEDS ORDERED: VENL75CA2 PO (19:25)
[2020-10-20 20:41] LABS: BASO % 0.3 % (0.0-1.0); EOS % 0.4 % (0.0-3.0); HEMATOCRIT 45.8 % (36.0-47.0); HEMOGLOBIN 14.5 g/dl (12.0-15.5); LYMPH # 0.9 10^3/uL (1.5-5.0); LYMPH % 11.2 % (24.0-44.0); MEAN CORPUSCULAR HEMOGLOBIN 27.4 pg (27.0-33.0); MEAN CORPUSCULAR HGB CONC 31.7 g/dl (32.0-36.5); MEAN CORPUSCULAR VOLUME 86.4 fl (80.0-96.0); MONO # 0.3 10^3/uL (0.0-0.8); MONO % 3.8 % (2.0-8.0); NEUTROPHILS # 6.7 10^3/uL (1.5-8.5); PLATELET COUNT, AUTOMATED 288 10^3/uL (150-450)
[2020-10-20 21:05] LABS: ALBUMIN 3.8 GM/DL (3.2-5.2); BILIRUBIN,DIRECT 0.1 MG/DL (0.0-0.2); BILIRUBIN,TOTAL 0.4 MG/DL (0.2-1.0); TOTAL PROTEIN 8.1 GM/DL (6.4-8.2)
[2020-10-20] MEDS ORDERED: ONDANSETRON 4MG/2ML VIAL IV ONE (22:20)
[2020-10-20] MEDS ORDERED: GI COCKTAIL 50ML BTL(HYOSCYAMINE/MAALOX/LIDOCAINE VISCOUS)(1:3:1) PO ONE (22:20)
[2020-10-20] MEDS ORDERED: NS 1,000 ML IV ONE (22:20)
--- NOTE | 2020-10-20 23:29 | REPVR ---
PROCEDURE INFORMATION: Exam: XR Complete Acute Abdomen Series Including Chest Exam date and time: 10/20/2020 10:27 PM Age: 25 years old Clinical indication: Other: Nvd TECHNIQUE: Imaging protocol: XR complete acute abdomen series, including 2 or more views of the abdomen and a single view chest. COMPARISON: CT ABD/PEL W/IV ORAL CONTRAS 12/15/2019 1:12 PM FINDINGS: Lungs: Normal. No consolidation. Pleural spaces: Normal. No pleural effusions. No pneumothorax. Heart/Mediastinum: Normal. No cardiomegaly. Gastrointestinal tract: Minimal gas in the GI tract without abnormal dilatation. No abnormal air-fluid levels. Intraperitoneal space: No free air. Bones/joints: Normal. No acute fracture. Soft tissues: Normal. IMPRESSION: 1. Negative chest. 2. Negative abdomen with minimal gas which is within normal limits. Electronically signed by: Richi Paulino On 10/20/2020 23:29:21 PM
[2020-10-21] MEDS ORDERED: ONDA4TAB6 PO (00:01)
[2020-10-21 00:17] VITALS: BP 130/64
== END 2020-10-21 00:40 | disposition home or self-care (01) ==
LOC: M ED 19:09
DX: R10.13 Epigastric pain (principal); R11.2 Nausea with vomiting, unspecified; R19.7 Diarrhea, unspecified; F17.200 Nicotine dependence, unspecified, uncomplicated; Z79.899 Other long term (current) drug therapy
CPT/HCPCS: 74021; 80047; 80076; 81001; 83690; 84702; 85025; 87086; 96361; 96374; 99284; J2405

== ENCOUNTER → 2021-01-18 | Outpatient (REF) | payer OTHER, MEDICAID ==
[~2021-01-18] MED LIST changes: +ONDA4TAB6 PO; +VENL75CA2 PO
[2021-01-18 12:29] LABS: BASO % 0.3 % (0.0-1.0); EOS # 0.1 10^3/uL (0.0-0.5); EOS % 1.1 % (0.0-3.0); HEMATOCRIT 44.8 % (36.0-47.0); HEMOGLOBIN 14.4 g/dl (12.0-15.5); LYMPH # 2.3 10^3/uL (1.5-5.0); LYMPH % 33.4 % (24.0-44.0); MEAN CORPUSCULAR HEMOGLOBIN 28.7 pg (27.0-33.0); MEAN CORPUSCULAR HGB CONC 32.1 g/dl (32.0-36.5); MEAN CORPUSCULAR VOLUME 89.4 fl (80.0-96.0); MONO # 0.4 10^3/uL (0.0-0.8); MONO % 5.9 % (2.0-8.0); NEUTROPHILS # 4.1 10^3/uL (1.5-8.5); PLATELET COUNT, AUTOMATED 226 10^3/uL (150-450); RED BLOOD COUNT 5.01 10^6/uL (4.00-5.40)
[2021-01-18 13:10] LABS: FREE T4 0.88 NG/DL (0.76-1.46); PERCENT SATURATION 35.7 % (13.2-45.0); THYROID STIMULATING HORMONE 2.84 uIU/ML (0.358-3.740)
== END ==
LOC: M SFHCADAM 08:07
PROVIDERS: ATTEND Physician Assistant Medical
DX: D50.8 Other iron deficiency anemias (principal); F34.1 Dysthymic disorder; K58.0 Irritable bowel syndrome with diarrhea; E66.9 Obesity, unspecified

== ENCOUNTER → 2021-04-27 | Outpatient (REF) | payer OTHER, MEDICAID ==
[2021-04-28 05:07] LABS: MUMPS VIRUS IgG ANTIBODY 24.6 AU/mL (Immune >10.9); RUBEOLA IgG ANTIBODY >300.0 AU/mL (Immune >16.4)
== END ==
LOC: M SFHCADAM 07:51
PROVIDERS: ATTEND Physician Assistant Medical
DX: Z78.9 Other specified health status (principal)

== ENCOUNTER → 2021-09-11 | Outpatient (REF) | payer BC, OTHER | LOC: M SFHCWAGY 17:34 | PROVIDERS: ATTEND Specialist | DX: Z01.419 Encounter for gynecological examination (general) (routine) without abnormal findings (principal); Z12.4 Encounter for screening for malignant neoplasm of cervix ==

== ENCOUNTER 2022-01-05 18:33 | Emergency (ER) | payer BC, OTHER ==
[~2022-01-05] VITALS: Ht 167.6 cm; Wt 75.2 kg
[2022-01-05] MEDS ORDERED: ACET-683 PO (18:46)
[2022-01-05] MEDS ORDERED: AMPH1TAB2 (18:46)
[2022-01-05 19:51] LABS: BASO % 0.4 % (0.0-1.0); EOS % 0.4 % (0.0-3.0); HEMATOCRIT 41.1 % (36.0-47.0); HEMOGLOBIN 13.7 g/dl (12.0-15.5); LYMPH # 1.5 10^3/uL (1.5-5.0); LYMPH % 29.4 % (24.0-44.0); MEAN CORPUSCULAR HEMOGLOBIN 30.2 pg (27.0-33.0); MEAN CORPUSCULAR HGB CONC 33.3 g/dl (32.0-36.5); MEAN CORPUSCULAR VOLUME 90.5 fl (80.0-96.0); MONO # 0.5 10^3/uL (0.0-0.8); MONO % 10.1 % (2.0-8.0); NEUTROPHILS % 59.5 % (36.0-66.0); PLATELET COUNT, AUTOMATED 240 10^3/uL (150-450); RED BLOOD COUNT 4.54 10^6/uL (4.00-5.40)
[2022-01-05 20:26] LABS: ALBUMIN 3.7 GM/DL (3.2-5.2); ALT/SGPT 15 U/L (12-78); BILIRUBIN,DIRECT < 0.1 MG/DL (0.0-0.2); BILIRUBIN,TOTAL 0.3 MG/DL (0.2-1.0); LIPASE 135 U/L (73-393); TOTAL PROTEIN 7.6 GM/DL (6.4-8.2)
[2022-01-05 21:22] LABS: GC DNA AMPLIFICATION NEGATIVE (NEGATIVE)
[2022-01-05] MEDS ORDERED: CIPR-249 PO (21:58)
[2022-01-05] MEDS ORDERED: CIPROFLOXACIN 500MG TABLET PO ONE (22:00)
[2022-01-05 22:12] VITALS: BP 140/87
== END 2022-01-05 22:15 | disposition home or self-care (01) ==
LOC: M ED 18:33
DX: N39.0 Urinary tract infection, site not specified (principal); G43.909 Migraine, unspecified, not intractable, without status migrainosus; Z79.899 Other long term (current) drug therapy

== ENCOUNTER 2023-07-28 17:59 | Emergency (ER) | payer BC, OTHER ==
[~2023-07-28] VITALS: Ht 165.1 cm; Wt 72.7 kg
[~2023-07-28 17:59] MED LIST changes: +ACET-683 PO; +AMPH1TAB2; +CIPR-249 PO
[2023-07-28 18:00] VITALS: TEMP 97.2
[2023-07-28] MEDS ORDERED: THERTAB19 PO (18:05)
[2023-07-28 18:37] LABS: BASO % 0.3 % (0.0-1.0); EOS # 0.1 10^3/uL (0.0-0.5); EOS % 1.2 % (0.0-3.0); HEMATOCRIT 34.5 % (36.0-47.0); HEMOGLOBIN 11.2 g/dl (12.0-15.5); LYMPH # 2.9 10^3/uL (1.5-5.0); MEAN CORPUSCULAR HEMOGLOBIN 25.7 pg (27.0-33.0); MEAN CORPUSCULAR HGB CONC 32.5 g/dl (32.0-36.5); MEAN CORPUSCULAR VOLUME 79.1 fl (80.0-96.0); MONO # 0.5 10^3/uL (0.0-0.8); MONO % 6.8 % (2.0-8.0); NEUTROPHILS # 4.3 10^3/uL (1.5-8.5); NEUTROPHILS % 54.3 % (36.0-66.0); PLATELET COUNT, AUTOMATED 328 10^3/uL (150-450); RED BLOOD COUNT 4.36 10^6/uL (4.00-5.40); WHITE BLOOD COUNT 7.8 10^3/uL (4.0-10.0)
[2023-07-28 19:02] LABS: LIPASE 41 U/L (12-53)
[2023-07-28 19:03] LABS: CPK CREATINE PHOSPHOKINASE 53 U/L (34-145)
[2023-07-28 19:04] LABS: ALBUMIN 4.2 G/DL (3.2-5.2); ALKALINE PHOSPHATASE 114 U/L (46-116); ALT/SGPT 13 U/L (7.0-40); AST/SGOT 12 U/L (<34); BILIRUBIN,DIRECT < 0.1 MG/DL (<0.4); BILIRUBIN,TOTAL 0.2 MG/DL (0.3-1.2); BLOOD UREA NITROGEN 15 MG/DL (9-23); CALCIUM LEVEL 9.7 MG/DL (8.5-10.1); CARBON DIOXIDE LEVEL 23 MMOL/L (20-31); CHLORIDE LEVEL 106 MMOL/L (98-107); CK-MB VALUE MASS < 1.0 NG/ML (<3.6); CREATININE FOR GFR 0.62 MG/DL (0.55-1.30); GLOMERULAR FILTRATION RATE > 60.0 (>60); GLUCOSE, FASTING 92 MG/DL (60-100); MB/CK RELATIVE INDEX 1.88 (< OR =4); POTASSIUM SERUM 3.5 MMOL/L (3.5-5.1); SODIUM LEVEL 140 MMOL/L (136-145); TOTAL PROTEIN 7.4 G/DL (5.7-8.2)
[2023-07-28 19:06] LABS: THYROID STIMULATING HORMONE 3.071 uIU/ML (0.55-4.78)
[2023-07-28 19:09] LABS: HCG, SERUM QUALITATIVE NEGATIVE (NEGATIVE)
[2023-07-28 19:55] LABS: CK-MB VALUE MASS < 1.0 NG/ML (<3.6)
[2023-07-28 19:58] LABS: CPK CREATINE PHOSPHOKINASE 57 U/L (34-145); MB/CK RELATIVE INDEX 1.75 (< OR =4)
[2023-07-28] MEDS: KETOROLAC 30 MG/ML 1ML VIAL IV ONE (20:04)
[2023-07-28 20:44] VITALS: O2SAT 99
[2023-07-28 20:45] VITALS: BP 109/55
[2023-07-28] MEDS ORDERED: IBUP-1022 PO (21:27)
== END 2023-07-28 21:37 | disposition home or self-care (01) ==
LOC: M ED 17:59
DX: R07.9 Chest pain, unspecified (principal); Z79.1 Long term (current) use of non-steroidal anti-inflammatories (NSAID); Z79.899 Other long term (current) drug therapy
CPT/HCPCS: 71045; 80048; 80076; 82550; 82553; 83690; 84443; 84484; 84703; 85025; 85379; 93005; 96374; 99284; J1885

== ENCOUNTER → 2023-08-05 | Outpatient (REF) | payer OTHER ==
[~2023-08-05] MED LIST changes: +IBUP-1022 PO; +THERTAB19 PO
[2023-08-05 12:31] LABS: BASO % 0.2 % (0.0-1.0); EOS # 0.1 10^3/uL (0.0-0.5); HEMOGLOBIN 10.9 g/dl (12.0-15.5); LYMPH # 1.5 10^3/uL (1.5-5.0); LYMPH % 25.5 % (24.0-44.0); MEAN CORPUSCULAR HEMOGLOBIN 25.5 pg (27.0-33.0); MEAN CORPUSCULAR HGB CONC 31.1 g/dl (32.0-36.5); MONO # 0.3 10^3/uL (0.0-0.8); MONO % 5.7 % (2.0-8.0); NEUTROPHILS # 3.9 10^3/uL (1.5-8.5); NEUTROPHILS % 67.3 % (36.0-66.0); PLATELET COUNT, AUTOMATED 325 10^3/uL (150-450); RED BLOOD COUNT 4.27 10^6/uL (4.00-5.40); WHITE BLOOD COUNT 5.8 10^3/uL (4.0-10.0)
[2023-08-05 12:38] LABS: ERYTHROCYTE SEDIMENTATION RATE 28 mm/hr (0-20)
[2023-08-05 13:02] LABS: FOLATE 21.6 NG/ML (>5.4)
[2023-08-05 13:03] LABS: C REACTIVE PROTEIN QUANTITATIV < 0.40 MG/DL (<1.0)
[2023-08-05 13:04] LABS: TOTAL 25(OH) VITAMIN D 27.8 NG/ML (20.0-100.0)
[2023-08-05 13:05] LABS: ALBUMIN 3.9 G/DL (3.2-5.2); ALKALINE PHOSPHATASE 105 U/L (46-116); ALT/SGPT 11 U/L (7.0-40); AST/SGOT < 8 U/L (<34); BILIRUBIN,TOTAL 0.3 MG/DL (0.3-1.2); BLOOD UREA NITROGEN 10 MG/DL (9-23); CALCIUM LEVEL 9.2 MG/DL (8.5-10.1); CARBON DIOXIDE LEVEL 26 MMOL/L (20-31); CHLORIDE LEVEL 110 MMOL/L (98-107); CREATININE FOR GFR 0.58 MG/DL (0.55-1.30); GLOMERULAR FILTRATION RATE > 60.0 (>60); GLUCOSE, FASTING 88 MG/DL (60-100); IRON (FE) 23 UG/DL (50-170); PERCENT SATURATION 6.5 % (13.2-45.0); POTASSIUM SERUM 4.2 MMOL/L (3.5-5.1); SODIUM LEVEL 143 MMOL/L (136-145); THYROID STIMULATING HORMONE 2.397 uIU/ML (0.55-4.78); TOTAL IRON BINDING CAPACITY 356 UG/DL (250-425); TOTAL PROTEIN 7.1 G/DL (5.7-8.2)
[2023-08-05 13:06] LABS: COMPLEMENT C3 140.8 MG/DL (82.0-160.0); RHEUMATOID FACTOR QUANT 5.1 IU/ML (<14)
[2023-08-05 13:07] LABS: VITAMIN B12 LEVEL 257 PG/ML (211-911)
[2023-08-07 10:29] LABS: DRVV SCREEN 36.3 SECONDS
[2023-08-07 10:36] LABS: PTT LUPUS TYPE ANTICOAG SCREEN 0.93 (0-1.20)
[2023-08-14 23:09] LABS: ANA (HEP2) Negative (.); ANTI DS-DNA AB Negative (Negative); HLA-B27 Negative (.)
== END ==
LOC: M SFHCADAM 10:31
PROVIDERS: ATTEND Physician Assistant Medical
DX: M54.2 Cervicalgia (principal); M79.89 Other specified soft tissue disorders; R21 Rash and other nonspecific skin eruption; D50.8 Other iron deficiency anemias

== ENCOUNTER 2025-02-12 18:28 | Emergency (ER) | payer OTHER ==
[~2025-02-12] VITALS: Ht 165.1 cm; Wt 83.3 kg
[~2025-02-12 18:28] MED LIST changes: -IBUP-1022 PO; +IBUP600T42 PO; +ONDA-282 PO; -ONDA4TAB6 PO
[2025-02-12 19:52] LABS: PLATELET COUNT, AUTOMATED 437 10^3/uL (150-450)
[2025-02-12 20:11] LABS: C REACTIVE PROTEIN QUANTITATIV 1.18 MG/DL (<1.0); CALCIUM LEVEL 8.5 MG/DL (8.5-10.1); CARBON DIOXIDE LEVEL 27 MMOL/L (20-31); CHLORIDE LEVEL 104 MMOL/L (98-107); CREATININE FOR GFR 0.48 MG/DL (0.55-1.30); GLOMERULAR FILTRATION RATE > 90.0 (>60); HCG, SERUM QUANTITATIVE < 2.6 MIU/ML (<4.2); POTASSIUM SERUM 3.3 MMOL/L (3.5-5.1); SODIUM LEVEL 142 MMOL/L (136-145)
[2025-02-12 20:24] LABS: ATYPICAL LYMPH 4 % (0-5); LYMPHOCYTES 58 % (16-44); MONOCYTES 7 % (0-5); NEUTROPHILS 31 % (28-66)
[2025-02-12 20:25] LABS: PLATELET ESTIMATE NORMAL (NORMAL)
[2025-02-12] MEDS ORDERED: ISOVUE-370 76% 100 ML VIAL As Ordered ONE (22:17)
[2025-02-12 22:39] LABS: INR 1.0
[2025-02-12 23:34] VITALS: BP 136/76; TEMP 97.2; O2SAT 100
[2025-02-12 23:51] LABS: IRON (FE) 19 UG/DL (50-170); PERCENT SATURATION 4.9 % (13.2-45.0)
[2025-02-12 23:54] LABS: VITAMIN B12 LEVEL 539 PG/ML (211-911)
[2025-02-13 12:44] LABS: ALT/SGPT 213 U/L (7.0-40); AST/SGOT 263 U/L (<34)
== END 2025-02-12 23:40 | disposition home or self-care (01) ==
LOC: M ED 18:28
DX: R10.32 Left lower quadrant pain (principal); R16.1 Splenomegaly, not elsewhere classified; D73.5 Infarction of spleen; D64.9 Anemia, unspecified; M41.35 Thoracogenic scoliosis, thoracolumbar region; K42.9 Umbilical hernia without obstruction or gangrene; Z79.899 Other long term (current) drug therapy
CPT/HCPCS: 36415; 74177; 76705; 80048; 80076; 82607; 82728; 82746; 83550; 83605; 84702; 85025; 85046; 85610; 85652; 86140; 86850; 86900; 86901; 99284; Q9967

== ENCOUNTER → 2025-02-14 | Outpatient (CLI) | payer BC ==
[~2025-02-14] MED LIST changes: +METR-265 PO
[2025-02-14 15:40] LABS: PLATELET COUNT, AUTOMATED 438 10^3/uL (150-450)
[2025-02-14 16:04] LABS: ATYPICAL LYMPH 12 % (0-5); LYMPHOCYTES 54 % (16-44); MONOCYTES 4 % (0-5); NEUTROPHILS 30 % (28-66)
[2025-02-14 16:07] LABS: PLATELET ESTIMATE NORMAL (NORMAL)
== END ==
LOC: M LAB 15:01
DX: D64.9 Anemia, unspecified (principal)

== ENCOUNTER 2025-02-15 12:13 | Emergency (ER) | payer BC ==
[~2025-02-15] VITALS: Ht 165.1 cm; Wt 81.2 kg
[~2025-02-15 12:13] MED LIST changes: -METR-265 PO
[2025-02-15 13:14] LABS: PLATELET COUNT, AUTOMATED 466 10^3/uL (150-450)
[2025-02-15 13:35] LABS: INR 0.99
[2025-02-15] MEDS ORDERED: METR-265 PO (13:36)
[2025-02-15 13:38] LABS: LDH LACTATE DEHYDROGENASE 527 U/L (120-246)
[2025-02-15 13:39] LABS: ALT/SGPT 172 U/L (7.0-40); AST/SGOT 159 U/L (<34); CALCIUM LEVEL 8.5 MG/DL (8.5-10.1); CARBON DIOXIDE LEVEL 28 MMOL/L (20-31); CHLORIDE LEVEL 105 MMOL/L (98-107); CREATININE FOR GFR 0.52 MG/DL (0.55-1.30); GLOMERULAR FILTRATION RATE > 90.0 (>60); POTASSIUM SERUM 3.8 MMOL/L (3.5-5.1); SODIUM LEVEL 143 MMOL/L (136-145)
[2025-02-15] MEDS ORDERED: HOME MED LIST COMPLETE! XX SCH (13:40)
[2025-02-15 14:39] LABS: ATYPICAL LYMPH 3 % (0-5); BASOPHILS 1 % (0-1); LYMPHOCYTES 52 % (16-44); MONOCYTES 8 % (0-5); NEUTROPHILS 36 % (28-66)
[2025-02-15 15:01] LABS: PLATELET ESTIMATE INCREASED (NORMAL)
[2025-02-15] MEDS: KETOROLAC 30 MG/ML 1 ML VIAL IV ONE (15:05)
[2025-02-15 17:30] VITALS: BP 127/74; TEMP 97.9; O2SAT 98
== END 2025-02-15 17:37 | disposition home or self-care (01) ==
LOC: M ED 12:13
DX: D50.9 Iron deficiency anemia, unspecified (principal); B27.90 Infectious mononucleosis, unspecified without complication; R16.1 Splenomegaly, not elsewhere classified; F41.9 Anxiety disorder, unspecified; Z79.899 Other long term (current) drug therapy

== ENCOUNTER → 2025-02-17 | Outpatient (CLI) | payer BC ==
[~2025-02-17] MED LIST changes: +METR-265 PO
[2025-02-17 11:32] LABS: ALT/SGPT 127 U/L (7.0-40); AST/SGOT 100 U/L (<34); CALCIUM LEVEL 9.0 MG/DL (8.5-10.1); CARBON DIOXIDE LEVEL 27 MMOL/L (20-31); CHLORIDE LEVEL 106 MMOL/L (98-107); CREATININE FOR GFR 0.52 MG/DL (0.55-1.30); GLOMERULAR FILTRATION RATE > 90.0 (>60); POTASSIUM SERUM 4.0 MMOL/L (3.5-5.1); SODIUM LEVEL 142 MMOL/L (136-145)
[2025-02-17 11:36] LABS: PLATELET COUNT, AUTOMATED 473 10^3/uL (150-450)
[2025-02-17 12:18] LABS: ATYPICAL LYMPH 8 % (0-5); LYMPHOCYTES 58 % (16-44); MONOCYTES 7 % (0-5); NEUTROPHILS 27 % (28-66)
[2025-02-17 12:22] LABS: PLATELET ESTIMATE INCREASED (NORMAL)
== END ==
LOC: M LAB 10:02
PROVIDERS: ATTEND Internal Medicine
DX: R79.89 Other specified abnormal findings of blood chemistry (principal)